=== PATIENT | male | born 1990 | race Caucasian/White ===

== ENCOUNTER → 2019-06-09 10:02 | Outpatient (CLI) | payer OTHER, SELFPAY ==
[2019-06-09 12:30] LABS: Liquefaction Semen YES (YES); Sperm Count 223 x10^6/mL (20-150); Sperm Morphology 45 %ABNORM (0-30); Volume Semen > 5.0 (1.0-5.0)
== END ==
PROVIDERS: PCP Family Medicine; Visit Provider Registered Nurse
DX: Z31.41 Encounter for fertility testing (principal)
CPT/HCPCS: 89320

== ENCOUNTER 2022-01-12 02:48 | Emergency (ER) | payer OTHER, SELFPAY ==
[2022-01-12 02:57] VITALS: BP 140/88; PULSE 64; RESP 18; TEMP 36.6; O2SAT 99; BMI 34.7
--- NOTE | 2022-01-12 02:58 | DI.RAD.S_ITS ---
PROCEDURE: XR ACUTE ABDOMEN SERIES INDICATIONS: abdominal pain TECHNIQUE: One view chest and two views of the abdomen were acquired. COMPARISON: None. FINDINGS: Surgical changes and devices: None. Chest: Lungs are clear. Heart size is normal. No pleural effusions. No pneumoperitoneum. Abdomen: Bowel gas pattern is normal. No suspicious calcifications. Visualized solid organ contours appear normal. Bones: No suspicious bony lesions. IMPRESSION: No bowel obstruction or gross free air. No acute cardiopulmonary pathology. Dictated by: Campbell Schilling M.D. on 01/12/2022 at 7:39 Approved by: Campbell Schilling M.D. on 01/12/2022 at 7:39
--- NOTE | 2022-01-12 03:04 | ED.ABDPAIN ---
HPI - Abdominal Pain General Chief Complaint: Syncope Stated Complaint: abd pain Time Seen by Provider: 01/12/22 02:56 History of Present Illness HPI narrative: 31-year-old male nonsmoker with noncontributory medical history presents with his significant other and a chief complaint of a syncopal episode just prior to arrival. He had been in his normal state of health over the course of the day and when he went to sleep. He woke from sleep with a sudden and severe generalized abdominal pain and felt the urge to have a bowel movement and went to the bathroom and had a large loose stool and proceeded to lose consciousness while on the toilet. He woke up soon after, denies any injury as a consequence of a syncopal episode and denies any ongoing symptoms. He states there was no blood or dark and tarry appearance to the diarrhea. He denies any fever or chills. He has no runny nose, sore throat or cough and denies any chest pain, palpitations or shortness of breath. He states he has had no bad food, recent antibiotics. He denies any change in medications or dietary change recently and states that 1 time previously he had a a syncopal episode when he saw a particularly gruesome photograph or video. Related Data Previous Rx's Medication Instructions Recorded cyclobenzaprine 10 mg tablet 10 mg PO TIDP PRN #14 tabs 12/02/16 Allergies Allergy/AdvReac Type Severity Reaction Status Date / Time No Known Allergies Allergy Uncoded 10/20/17 12:44 Review of Systems Review of Systems Narrative: GENERAL: Denies chills, fatigue, malaise, fever, sweats. HEENT: Denies sinus pain, ear pain, sore throat, difficulty swallowing, dizziness. RESPIRATORY: Denies dyspnea, cough, wheezing, hemoptysis, sputum. CARDIOVASCULAR: See HPI GASTROINTESTINAL: See HPI : Denies dysuria, frequency, incontinence, hematuria, urinary retention. MUSCULOSKELETAL: denies weakness, joint pain, or bony pain SKIN: Denies rash, skin lesions, or other NEUROLOGIC: Denies weakness, headache, numbness, change in speech, confusion, seizures, incoordination. PSYCHIATRIC: No concerning psychosocial issues. 12 point review of systems is negative except for those stated above Patient History Social History Smoking Status: Never smoker Exam Narrative Exam Narrative: GENERAL: [31] year old patient appears stated age. Well-developed patient, in mild distress. HEAD: Atraumatic. Normocephalic. EYES: Pupils equal round and reactive. Extraocular motions intact. No scleral icterus. No injection or drainage. ENT: Nose without bleeding, purulent drainage. Throat without erythema, tonsillar hypertrophy or exudate. Airway patent. NECK: Trachea midline. Non tender CARDIOVASCULAR: Regular rate and rhythm without murmurs, gallops, or rubs. RESPIRATORY: Clear to auscultation. Breath sounds equal bilaterally. No wheezes, rales, or rhonchi. GASTROINTESTINAL: Abdomen soft, non-tender, nondistended. Bowel sounds present in all 4 quadrants EXTREMITIES: No edema or joint tenderness. BACK: Nontender without deformity or crepitance. No flank tenderness. NEURO: AOx3. SKIN: No rash or erythema of visible areas Initial Vital Signs Initial Vital Signs: Vital Signs Temperature 97.8 F 01/12/22 02:57 Pulse Rate 64 01/12/22 02:57 Respiratory Rate 18 01/12/22 02:57 Blood Pressure 140/88 01/12/22 02:57 Pulse Oximetry 99 01/12/22 02:57 Oxygen Delivery Method 01/12/22 02:57 Course Orders Ordered: ED Orders 01/12/22 02:58 XR acute abdomen series Stat EKG-12 Lead Stat 01/12/22 03:15 Complete Blood Count AUTO DIFF Stat Comprehensive Metabolic Panel Stat Magnesium Stat Discontinued Medications Sodium Chloride (Normal Saline 0.9%) 1,000 mls @ 1,000 mls/hr IV BOLUS ONE Stop: 01/12/22 03:56 Last Admin: 01/12/22 04:13 Dose: 1,000 mls/hr Vital Signs Vital signs: Vital Signs - 8 hr 01/12/22 02:57 01/12/22 04:04 01/12/22 04:04 Temperature 97.8 F Pulse Rate 64 66 Respiratory Rate 18 Blood Pressure 140/88 116/74 Pulse Oximetry 99 99 Oxygen Delivery Method Room Air MDM - Abdominal Pain Lab Data Result diagrams: 01/12/22 03:15 01/12/22 03:15 Labs: Lab Results 01/12/22 01/12/22 Range/Units 03:15 03:15 WBC 9.4 (4.5-11.0) X10^3/uL RBC 5.19 (4.5-5.9) X10^6/uL Hgb 16.0 (13.5-17.5) g/dL Hct 46.3 (41-53) % MCV 89.3 (80-100) fL MCH 30.9 (26-34) PG MCHC 34.6 (30-36) % RDW 13.1 (11.6-14.8) % Plt Count 198 (150-400) X10^3/uL Neut % (Auto) 66.9 (50-75) % Lymph % (Auto) 20.4 L (25-40) % Bartholomew % (Auto) 7.8 (3-14) % Eos % (Auto) 4.3 H (2-4) % Baso % (Auto) 0.6 (0-2) % Neut # (Auto) 6300 (1167-3987) /uL Lymph # (Auto) 1900 (4383-4617) /uL Bartholomew # (Auto) 700 (0-900) /uL Eos # (Auto) 400 (0-450) /uL Baso # (Auto) 100 (0-100) /uL Sodium 140 (137-145) mmol/L Potassium 3.8 (3.4-5.1) mmol/L Chloride 106 (98-107) mmol/L Carbon Dioxide 24 (22-32) mmol/L BUN 17 (9-20) mg/dL Creatinine 0.83 (0.66-1.25) mg/dL Estimated GFR > 60 (>60) mL/min BUN/Creatinine Ratio 20.5 (6-22) Glucose 109 H (70-100) mg/dL Calcium 8.9 (8.4-10.2) mg/dL Magnesium 2.0 (1.6-2.3) mg/dL Total Bilirubin 0.6 (0.2-1.3) mg/dL AST 41 (17-59) IU/L ALT 89 H (<50) IU/L Alkaline Phosphatase 47 (38-126) U/L Total Protein 7.2 (6.3-8.2) g/dL Albumin 4.3 (3.5-5.0) g/dL Globulin 2.9 (1.7-4.1) g/dL Albumin/Globulin Ratio 1.5 (1.0-2.8) Point of care testing: Urine Dip Bedside Urine Glucose Negative Bedside Urine Bilirubin - Negative Bedside Urine Ketone - Negative Urine Specific [place] 1.030 Bedside Urine Occult Blood - Negative Bedside Urine pH 6.0 Bedside Urine Protein - Negative Bedside Urine Urobilinogen - Negative Bedside Urine Nitrite - Negative Bedside Urine Leukocytes - Negative Esterase MDM Narrative Medical decision making narrative: Patient with very sure Ng is treated physical exam as well as vital signs, labs, EKG and imaging. Description of symptoms most consistent with a vagal response to pain. He is asymptomatic for the duration of his visit, the soft abdomen with 0 pain. Return precautions discussed questions answered to his apparent satisfaction Discharge Plan Departure Patient Disposition: Home Clinical Impression: Vasovagal syncope, Abdominal pain Instructions: DI for Syncope in Adults (Fainting) Activity Restrictions/Additional Instructions: *You have been diagnosed with [syncope likely due to increased vagal tone from abdominal pain, diarrhea and use of the toilet. As we discussed your history and physical exam as well as labs and imaging are very reassuring and there is no indication of any significant or severe underlying diagnosis that requires a specific intervention] *What to do: *Please continue to take your regular medications as directed. [ ] New medication prescriptions sent to your pharmacy: [ ] [ ] New medication written as a paper prescription [x ] No new medications given *Please follow up with your primary care provider in 2-3 days, call for an appointment. Let them know you were seen in the Emergency Department and that we ask that you be seen in follow up. We will electronically transmit a record of today's note if your PCP is in our system *If you do not have a primary care provider please contact the [facility] Resource line at [phone]. They will ask some questions about your medical history and help get you set up with a doctor in the community. *Return to Emergency Department if you should have any new, worsening or concerning symptoms, such as [fever greater than 101 F, shaking chills, worsening pain, persistent vomiting or other bothersome symptoms] Prescriptions: No Action cyclobenzaprine 10 MG tablet 10 mg PO TIDP PRNQty: 14 0RF Referrals: Momo Mayers MD [Primary Care Provider] -
[2022-01-12 03:24] LABS: Add Manual Diff / Slide Review NO; Basophils Absolute Auto 100 /uL (0-100); Basophils Percent Auto 0.6 % (0-2); Eosinophils Absolute Auto 400 /uL (0-450); Eosinophils Percent Auto 4.3 % (2-4); Hematocrit 46.3 % (41-53); Lymphocytes Absolute Auto 1900 /uL (1100-4500); Lymphocytes Percent Auto 20.4 % (25-40); Mean Corpuscular HGB Conc 34.6 % (30-36); Mean Corpuscular Hemoglobin 30.9 PG (26-34); Mean Corpuscular Volume 89.3 fL (80-100); Monocytes Absolute Auto 700 /uL (0-900); Monocytes Percent Auto 7.8 % (3-14); Neutrophils Absolute Auto 6300 /uL (1500-7000); Neutrophils Percent Auto 66.9 % (50-75); Platelet Count 198 X10^3/uL (150-400); Red Blood Cell Count 5.19 X10^6/uL (4.5-5.9); Red Cell Distribution Width 13.1 % (11.6-14.8); White Blood Cell Count 9.4 X10^3/uL (4.5-11.0)
[2022-01-12 03:34] LABS: Alanine Aminotransferase 89 IU/L (<50); Albumin 4.3 g/dL (3.5-5.0); Albumin Globulin Ratio 1.5 (1.0-2.8); Alkaline Phosphatase 47 U/L (38-126); Aspartate Aminotransferase 41 IU/L (17-59); BUN Creatinine Ratio 20.5 (6-22); Bilirubin Total 0.6 mg/dL (0.2-1.3); Blood Urea Nitrogen 17 mg/dL (9-20); Calcium 8.9 mg/dL (8.4-10.2); Carbon Dioxide 24 mmol/L (22-32); Chloride 106 mmol/L (98-107); Estimated Glomerular Filt Rate > 60 mL/min (>60); Globulin 2.9 g/dL (1.7-4.1); Glucose 109 mg/dL (70-100); HEMOLYSIS 23 (0-50); Potassium 3.8 mmol/L (3.4-5.1); Sodium 140 mmol/L (137-145); Total Protein 7.2 g/dL (6.3-8.2)
[2022-01-12 04:04] VITALS: BP 116/74; PULSE 66; O2SAT 99
[2022-01-12] MEDS: SODIUM CHLORIDE 0.9% 1,000 ML 1000 ML IV (04:13)
[2022-01-12 04:30] VITALS: BP 121/65; PULSE 67; O2SAT 97
== END 2022-01-12 04:37 | disposition home or self-care (01) ==
PROVIDERS: Emergency Provider Emergency Medicine; PCP Family Medicine
DX: R55 Syncope and collapse (principal); R10.84 Generalized abdominal pain
CPT/HCPCS: 36415; 74022; 80053; 81003; 83735; 85025; 93005; 93010; 99284

== ENCOUNTER → 2022-01-20 14:26 | Outpatient (CLI) | payer OTHER, SELFPAY | PROVIDERS: PCP Family Medicine; Visit Provider Physician Assistant | DX: J02.8 Acute pharyngitis due to other specified organisms (principal); B97.89 Other viral agents as the cause of diseases classified elsewhere | CPT/HCPCS: 87070 ==

== ENCOUNTER → 2022-02-05 12:50 | Outpatient (CLI) | payer OTHER, SELFPAY ==
--- NOTE | 2022-02-05 12:51 | DI.RAD.S_ITS ---
PROCEDURE: FL BARIUM SWALLOW INDICATIONS: Dysphagia, unspecified COMPARISON: [facility], CR, XR ACUTE ABDOMEN SERIES, 01/12/2022, 2:52. FINDINGS: Function: There is normal esophageal peristalsis. No elicited gastroesophageal reflux. There is normal transit of a calibrated barium tablet through the esophagus into the stomach. Morphology: Air-contrast images demonstrate normal mucosal morphology. Single contrast views show no esophageal strictures, extrinsic mass effects, or diverticula. Limited images of the stomach demonstrate normal appearance. IMPRESSION: Normal exam. Dictated by: Charis Gusman M.D. on 02/05/2022 at 13:45 Approved by: Charis Gusman M.D. on 02/05/2022 at 13:46
== END ==
PROVIDERS: PCP Family Medicine; Referring Provider Family Medicine; Visit Provider Family Medicine
DX: R13.10 Dysphagia, unspecified (principal)
CPT/HCPCS: 74220